=== PATIENT | female | born 2005 | race Caucasian/White ===

== ENCOUNTER 2025-04-19 10:23 | Emergency (ER) | payer MEDICAID ==
[~2025-04-19] VITALS: Ht 172.7 cm; Wt 74.5 kg
[2025-04-19 10:25] VITALS: TEMP 98.2
--- NOTE | 2025-04-19 10:34 | ELECTROCARDIOGRAPH REPORT ---
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 Tan Sosa Measurements Intervals [place] Rate: 72 P: 48 FL: 150 QRS: 70 QRSD: 82 T: 45 QT: 391 QTc: 428 Interpretive Statements Sinus rhythm Baseline wander in lead(s) V3 Electronically Signed On 04-19-2025 11:17:[address] Tan Sosa Please click the below link to view image of tracing.
--- NOTE | 2025-04-19 11:08 | Physician Documentation ---
History of Present Illness ~ Chief Complaint: Chest Pain Stated Complaint: POSS ANXIETY CP Time Seen by MD: 10:44 OK to notify your PCP?: Yes Source: patient, RN/MD, EMS, RN notes reviewed, EMS notes reviewed, old records Mode of Arrival: EMS Exam Limitations: no limitations HPI 20 year old female with history of anxiety seen in bed 09 presents to the emergency department via EMS brought in from work for complaints of chest pain. She states that she was working when she began to have a pain in her armpit that radiated into her chest and down her arm. At this time she began to feel dizzy and short of breath. She states that she was given an aspirin by EMS which resolved her pain. Of note patient states that [place] She also endorses sick exposure to a friend on a trip to [facility] recently. Patient denies any other associated symptoms at this time. Patient denies any other alleviating or exacerbating factors. Allergies: Coded Allergies: No Known Allergies (Unverified , 04/19/25) Active Prescriptions See Medication Reconciliation Form. Past Medical History Past Medical History: No Pertinent History, Anxiety Past Surgical History: tonsillectomy Review of Systems All Other Systems at this time: Reviewed and Negative ROS As stated above in the HPI, otherwise all systems are reviewed and negative. Physical Exam Vital Signs: RN Vital Signs have been reviewed: Yes, Temperature: 98.2, Source: Temporal, Heart Rate: 74, Respiratory Rate: 16, BP: 123/68, Pulse Oximetry: 100, Weight: 74.500 Oxygen Flow Rate: 0 Pulse Oximetry Reflects: adequate oxygenation Physical Exam General: The patient is well developed, well nourished, nontoxic appearing and is in no acute distress. Skin: [place], warm and dry with no rashes. HEENT: Head was normocephalic and atraumatic. Eyes - pupils equal, round, reactive to light and accommodation. Extraocular movements were intact. Conjunctivae were nonicteric. Ears - bilateral tympanic membranes were normal. The mouth and oropharynx were clear with moist mucous membranes. There were no pharyngeal exudates or erythema. Neck: Supple and nontender. There was no jugular venous distention, lymphadenopathy, thyromegaly or masses. Chest: Clear to auscultation bilaterally without wheezes, rales or rhonchi. No accessory muscle use. No dullness to percussion. Heart: Reproducible chest wall pain to the left anterior muscle. Rate regular and rhythmic. S1, S2. No murmurs. Palpation of the chest wall was normal. No rubs or thrills. Abdomen: Soft, nontender and nondistended. Positive bowel sounds. No guarding or rebound. No hepatosplenomegaly or palpable masses. Extremities: No cyanosis, clubbing or edema. The patient moves all extremities. Pulses were equal and symmetric. Neurologic: Cranial nerves II-XII were intact. Sensation was intact to light touch throughout. Motor strength was 5/5 in all four extremities. Deep tendon reflexes were intact in both upper and lower extremities. Psychologic: The patient was oriented to person, place and time. The patient demonstrated appropriate judgement and insight. Progress Results/Orders Reviewed/noted all lab results: Yes Results/Orders Orders - ADAN CARRILLO MD Monitor (04/19/25 10:29) Saline Lock (04/19/25 10:29) Oxygen (04/19/25 10:29) Electrocardiogram (04/19/25 10:29) Completed Orders - ADAN CARRILLO MD Electrocardiogram (04/19/25 10:29) Vital Signs 04/19/25 04/19/25 04/19/25 10:25 11:08 11:33 Temp 98.2 Pulse 74 77 Resp 16 13 B/P (MAP) 123/68 109/51 Pulse Ox 100 98 O2 Flow Rate 0 Re-Evaluation Re-Evaluation : Re-Evaluation: Improved Progress Patient was seen and examined. Patient is given reassurance. 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 She denies any recent patient is with COVID or influenza. Patient started having some chest pain today. Radiating to the left arm. She was also bit agitated anxious. During her workup EKG was reassuring. Vitals were reassuring however the patient was refusing x-ray due to concerns for cost. At that point laboratory work was discontinued. Physical exam was reassuring except there was some reproducible chest wall pain. Patient was told to take anti-inflammatories like leave and was discharged home encouraged to return if there was any other complaints take the day off. Patient also was paddle boarding the day before which most likely is contributing to her chest wall pain. No ectopy or palpitations were seen Pulse oximetry monitor interpretation shows normal oxygenation at 99% room air, normal, my interpretation. 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 Adan Carrillo Measurements Intervals [place] Rate: 72 P: 48 [place]: 150 QRS: 70 QRSD: 82 T: 45 QT: 391 QTc: 428 Interpretive Statements Sinus rhythm Baseline wander in lead(s) V3 Electronically Signed On 04-19-2025 11:17:[address] Adan Carrillo Please click the below link to view image of tracing. EKG Date and Time:04/19/25 1030 Electronically Signed by: ADAN CARRILLO MD Date and Time: 04/19/25 1117 Heart Score: Heart Score Response (Comments) Value History Slightly Suspicious 0 EKG Normal 0 Age <45 0 Risk Factors No known risk factors 0 Troponin Normal limit 0 Total 0 Medical Decision Making Additional info obtained from: family Differential Dx:Considerations: Include: Chest wall contusion, Pneumothorax, Pulmonary contusion, Other Departure Time of Disposition: 11:12 Disposition: 01 HOME / SELF CARE / HOMELESS Impression: Primary Impression: Chest wall pain Condition: Stable Discharge Instructions: Chest Wall Pain Additional Instructions: Make sure to take an Aleve before bed and when you get home today. Please return for any new fevers, palpitations, or other concerns. Referrals: NO PRIMARY CARE PROVIDER (PCP) Education Educated: Family Educated regarding: diagnosis, treatment, prognosis, need for follow up Signature Scribe Signature: Scribed for Adan Carrillo MD by Hemalatha Coppola . 04/19/25 11:15 Attestation: The note accurately reflects work and decisions made by me.Adan Carrillo MD 04/19/25 11:08 ADAN CARRILLO MD Apr 19, 2025 11:08 HEMALATHA GRIER Apr 19, 2025 11:16
[2025-04-19 11:33] VITALS: BP 109/51; PULSE 77; RESP 13; O2SAT 98
== END 2025-04-19 11:47 | disposition home or self-care (01) ==
LOC: ER 10:24
DX: R07.89 Other chest pain (principal); F41.9 Anxiety disorder, unspecified
CPT/HCPCS: 93005; 99283